=== PATIENT | male | born 1985 | race Caucasian/White ===

== ENCOUNTER → 2020-06-03 | Outpatient (CLI) | payer OTHER ==
--- NOTE | 2020-06-03 08:29 | PFTRPT ---
Height: 69.00 Inches Weight: 190.00 Lbs BSA: 2.02 Diagnosis: R06.02 DATE: 06/03/2020 ORDERING PHYSICIAN: Kathie Ji Pre and post bronchodilator studies have excellent technical quality. Forced vital capacity is normal. FEV1 is in proportion. Obstructive index is therefore normal. Expiratory limit of the flow-volume loop does suggest nonspecific limitation. At least some degree of bronchodilator response is identified. Total lung capacity is normal. Residual volume is in proportion. Diffusing capacity is normal. No hemoglobin available for correction. Airway resistance and conductance are normal. IMPRESSION: Mild reversible obstructive ventilatory defect. Please correlate clinically. MTDD
== END ==
LOC: M CARPUL 07:55
PROVIDERS: ATTEND Physician Assistant
DX: Z02.89 Encounter for other administrative examinations (principal)